=== PATIENT | male | born 1970 | race Caucasian/White ===

== ENCOUNTER 2017-08-27 08:57 | Day surgery (SDC) | payer BC ==
[~2017-08-27 08:57] MED LIST: HYDROCODONE-APA1 TAB PO
[2017-08-27 09:46] LABS: BASOPHILS 0.3 % (0-2); EOSINOPHILS 2.3 % (0-7); HEMATOCRIT 45.2 % (42.0-54.0); HEMOGLOBIN 15.6 g/dL (13.5-17.5); IMMATURE GRANULOCYTES 0.2 % (0-5); LYMPHOCYTES 24.3 % (15-50); MCHC 34.5 g/dL (31.0-37.0); MCV 89.7 fL (80.0-100.0); MEAN PLATELET VOLUME 10.4 fL (7.4-10.4); MONOCYTES 9.8 % (2-11); NEUTROPHILS 63.1 % (40-80); PLATELET COUNT 180 10x3/uL (130-400); RBC 5.04 10x6/uL (4.20-6.10); RDW 12.5 % (11.5-14.5)
[2017-08-27 10:01] LABS: CALC OSMOLALITY 277 mosm/kg (275-300); CARBON DIOXIDE 26.9 mmol/L (21.0-32.0); CHLORIDE - SERUM 105 mmol/L (98-107); GLUCOSE 103 mg/dL (74-106); SODIUM 138 mmol/L (136-145); UREA NITROGEN 17 mg/dL (7-18); eGFR NON AFRICAN AMERICAN 85 mL/min (90-120)
[2017-08-27] MEDS ORDERED: BENTYL 20 MG TA20 MG PO (11:20)
[2017-08-27 11:24] VITALS: BP 114/75; BMI 34.0
[2017-08-27] MEDS ORDERED: HYDROCODONE-APA1 TAB PO (12:46)
--- NOTE | 2017-08-27 14:24 | NUR ---
1970-RETURNED TO ROOM FROM PACU. POST OP CHACORTA PARRA. ALERT. RESP WITH EASE. DENIES PAIN. TAKING ICE CHIPS WITHOUT NAUSEA.
--- NOTE | 2017-08-27 15:48 | NUR ---
1525 REPORT FROM PHILLIP MILLS R.N. FULL LIQUIDS SERVED. RESP NONLABORED TAKING IN FLUIDA AND IV FLUIDS. 4 BANDAIDS C/D/I NO BLEEDING. DENIES NAUSEA. PAIN 2
--- NOTE | 2017-08-27 16:41 | NUR ---
1555 UP TO THE BATHROOM AND VOIDED. BANDAIDS TO ABDOMEN X 4 C/D/I ICE PACK ON ABDOMEN. DENIES NAUSEA.
--- NOTE | 2017-08-27 16:46 | NUR ---
1605 VOIDED WITHOUT DIFFICULTY. IV DCD CATHETER INTACT. DISCHARGE INSTRUCTIONS GIVEN AND VERBALLY UNDERSTANDS WENT OVER APPOINTMENT AND SCRIPT.
--- NOTE | 2017-08-27 16:48 | NUR ---
1615 TO HOME VIA W/C WITH .
--- NOTE | 2017-08-27 21:34 | OP ---
PATIENT NAME: PUJA PORTILLO MEDICAL RECORD: [id number] :68 LOCATION:[facility] ADMISSION DATE: SURGEON: ELIOT BABB MD DATE OF OPERATION: 08/27/2017 PREOPERATIVE DIAGNOSES: 1. Gallstones. 2. Gout. 3. Arthritis. POSTOPERATIVE DIAGNOSES: 1. Gallstones. 2. Gout. 3. Arthritis. PROCEDURE: Laparoscopic cholecystectomy. SURGEON: Eliot Babb MD REPORT OF PROCEDURE: The patient's abdomen was prepped and draped in sterile fashion. A cutdown was made on the superior aspect of the umbilicus, 0 Vicryls were placed in the fascia bilaterally and the fascia was incised with 15-blade. I then bluntly entered the peritoneal cavity and placed a 12-mm Linwood port. Under direct visualization, a 5 mm trocar was placed in the epigastrium and 2 more 5-mm trocars were placed in the right subcostal region. The gallbladder was grasped and elevated. There were no signs of any inflammatory changes. The cystic artery and cystic duct were dissected free and these were clipped proximally and distally and ligated in standard fashion. The gallbladder was taken off the liver bed using electrocautery and placed in the right upper quadrant. Any bleeding from the liver bed was then treated with electrocautery. We irrigated out the right upper quadrant and assured there was no sign of any bleeding or bile leakage. At this point, the ports and insufflation were then removed and the gallbladder was taken out through the umbilicus. The umbilical fascia was closed with interrupted 0 Vicryls times 3. The wounds were irrigated out with normal saline and infused with 10 mL of 0.25% Marcaine with epinephrine. The skin incisions were all closed with subcutaneous 5-0 Monocryl and dressed appropriately. COMPLICATIONS: None. CONDITION: Stable. ANESTHESIA: General endotracheal and local. BLOOD LOSS: Minimal. TRANSINT:[id number] Voice Confirmation ID: [id number] DOCUMENT ID: [id number] OPERATIVE REPORT [id number] PUJA PORTILLO ELIOT BABB MD at 2139 CC: SILVANO HENDRIX DO [id number] DICTATION DATE: 08/27/17 1253 [address] OPERATOR: 08/27/17 1329 [facility] 08/27/17 [facility] [address] [place] [address]
== END 2017-08-27 16:15 | disposition home or self-care (01) ==
LOC: D.OPS 08:57 → D.PAN 11:30 → D.OPS 11:30
PROVIDERS: Surgery
DX: K80.80 Other cholelithiasis without obstruction (principal); M10.9 Gout, unspecified; M19.90 Unspecified osteoarthritis, unspecified site; Z01.812 Encounter for preprocedural laboratory examination